=== PATIENT | female | born 1985 | race Caucasian/White ===

== ENCOUNTER → 2016-04-28 | Outpatient (CLI) | payer BC ==
--- NOTE | 2016-04-28 11:02 | REP ---
Obstetric sonography: History: Supervision of for anatomy. Findings: Scanning through the gravid uterus demonstrates a viable single intrauterine gestation in a cephalic lie. motion is observed and heart rate is recorded at 150 beats per minute. A posterior grade zero placenta is seen without evidence of previa or abruption. Amniotic fluid is subjectively normal. Closed cervical length is 4.3 cm. No extrauterine abnormality is observed. No anomaly is seen. The following anatomic structures are identified and felt to be sonographically unremarkable: cranium, choroid plexus, cavum, cerebellum and posterior fossa, face and profile, lungs, four-chamber heart with left and right ventricular outflow tract views, diaphragm, left-sided stomach, abdominal wall cord insertion, three-vessel umbilical cord, kidneys and bladder, spine, upper and lower extremities. Biometry chart: BPD 4.6 cm 20 weeks 0 days Head circumference 17.6 cm 20 weeks 1 day Abdominal circumference 15.8 cm 20 weeks 6 days Femur length 3.2 cm 20 weeks 1 day Humeral length 3.3 cm 21 weeks 0 days Cerebellar diameter 2.2 cm 20 weeks 5 days HC/AC ratio normal 1.11. Cephalic index normal 0.72. Estimated weight 357 grams, 0 pounds 12 ounces, 64th percentile for 20 weeks 0 days. Impression: Viable single intrauterine gestation at 20 weeks 0 days by today's composite sonographic criteria. DIANDRA by today's sonography is September 15, 2016. Signed by Gabriel Goss MD 04/28/2016 01:42 P
== END ==
LOC: M SMT 08:45
PROVIDERS: ATTEND Advanced Practice Midwife
DX: Z34.82 Encounter for supervision of other normal pregnancy, second trimester (principal)

== ENCOUNTER → 2016-06-02 | Outpatient (CLI) | payer BC ==
[2016-06-02 13:07] LABS: MEAN CORPUSCULAR HEMOGLOBIN 28.3 pg (27.0-33.0); MEAN CORPUSCULAR HGB CONC 32.7 g/dl (32.0-36.5); MEAN CORPUSCULAR VOLUME 86.6 fl (80.0-96.0); RED CELL DISTRIBUTION WIDTH 13.2 % (11.5-14.5); WHITE BLOOD COUNT 10.4 K/mm3 (4.0-10.0)
== END ==
LOC: M SMT 08:19
PROVIDERS: ATTEND Advanced Practice Midwife
DX: Z34.82 Encounter for supervision of other normal pregnancy, second trimester (principal)